=== PATIENT | female | born 1945 | race Caucasian/White ===

== ENCOUNTER → 2017-03-17 | Day surgery (SDC) | payer MEDICARE, OTHER ==
[~2017-03-17] VITALS: Ht 160 cm; Wt 68.0 kg
[~2017-03-17] MED LIST: ACET-2605 PO; BRIM30GE2 TP; Bacitracin Ointment Packet TOPICAL ONE; Bupivacaine-MPF 0.25% 30 mL Inj INFILTRATE ONE; CeFAZolin 2 Gm/50 mL D5W IV Premix IV SCH; Dexamethasone 4 mg/mL Inj IVPUSH PRN; Dexamethasone 4 mg/mL Inj ONE; EPHEDrine Sulfate 50 mg/mL Inj IVPUSH PRN; Lactated Ringer's 1,000 ML IV SCH; Lactated Ringer's 500 ML IV PRN; Lidocaine 1%-Epi 1:100,000 20 mL Inj INJ ONE; MetoCLOpramide 5 mg/mL 2 mL Inj IVPUSH PRN; NITR0.4T6 SL; OMEP40CA36 PO; Ondansetron 2 mg/mL 2 mL Inj IVPUSH PRN; Ondansetron 2 mg/mL 2 mL Inj ONE; Phenylephrine 10,000 mCg/mL Inj IVPUSH PRN; Propofol 10 mg/mL 20 mL Inj ONE; SUCR1ORA2 PO; TRAZ-115 PO; fentaNYL-PF 50 mCg/mL 2 mL Inj IVPUSH PRN; fentaNYL-PF 50 mCg/mL 20 mL Inj ONE
[2017-03-17] MEDS: Lactated Ringer's 1,000 ML IV SCH ×2 (05:54→07:50)
[2017-03-17 06:17] VITALS: BP 112/54; PULSE 53; RESP 17; O2SAT 99
--- NOTE | 2017-03-17 07:10 | PCM.HPANE ---
Patient Data Surgeon Admitting Provider: Attending Provider:Fam Rodney MD Primary Care Physician:Rehana Costello PA-C Other Provider:Brooke Graham Anesthesia Reason for Visit Left Cheek Mass (Cyst) Ht/WT & BMI Height (Feet): 5 Height (Inches): 3 Weight (Kilograms): 68.0 Body Mass Index 26.00 Allergies Coded Allergies: Yeast (Verified Allergy, Unknown, 03/14/17) cannot tolerate any products with yeast base hydrocodone (Verified Allergy, Unknown, altered heart rate, 03/14/17) hydrocortisone (Verified Allergy, Unknown, 03/17/17) Past Anesthesia History Anesthesia History: Positive for:: Anesthesia Reactions (difficult to awaken long ago), Denies:: Abnormal Airway, Difficult Intubation, Fam Anesthesia Reaction Diabetes History Hx Diabetes?: No MRSA MRSA: No (bad post op infection at one time, never confirmed as MRSA) Medications Hypertension Medication: No Home Meds Incl Beta Carolyn: No Reported Medications Nitroglycerin SL 0.4 Mg Tab.subl0.4 Mg SL PRN chest pain 03/14/17 Omeprazole 40 Mg Capsule.dr40 Mg PO BID Ref 0 03/14/17 Acetaminophen/Diphenhydramine (Tylenol Pm Ex-Strength Caplet)500 Mg-25 Mg Tablet2 Each PO HS 03/14/17 Trazodone 50 Mg [id number] Mg PO HS Ref 0 03/14/17 Brimonidine Tartrate (Mirvaso)0.33 % Gel.w.pump30 Gm TP DAILY 03/14/17 Sucralfate Susp (Carafate Susp)1 Gm/10 Ml Oral.susp1 Gm PO PRN For Epigastric Distress Ref 0 03/14/17 History History of ENT Problems?: No HEENT History: Positive for:: Cataracts (bilateral surgery) Denies:: Abnormal Airway Difficult Intubation Dysphagia Glaucoma Hearing Problem Sinus Problem TMJ Denture Type: None Teeth Condition: Within Normal Limits Hx of Heart Problems?: No Cardiovascular History: Denies:: AICD Abdominal Aortic Aneurism Atrial Fibrillation Chest Pain Edema Heart Murmur Hypertension Irregular Heartbeat Pacemaker Peripheral Vascular Rheumatic Fever Hx of Respiratory Problem?: No Respiratory History: Denies:: Asthma COPD Emphysema Oxygen Administration Pneumonia (remote hx of ) Tuberculosis Use of C-PAP Machine Hx Neurologic Problems?: No Neurological History: Denies:: CVA Headaches Multiple Sclerosis Parkinson's Disease Seizures Hx of GI Problems?: Yes Hx of Problems?: Yes Genitourinary History: Denies:: Kidney Stones Urinary Tract Infection Other Pertinent History: 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 (hx of right mastectomy- breast cancer) Denies:: Currently Skin History: Positive for:: History Skin Disorders? (epidermal cyst left cheek current admission problem) Hx Musculoskeletal Problems?: Yes Musculoskeletal History: Positive for:: Joint Replacement (total thumb replacements- bilateral) Osteoarthritis Denies:: Back Injury Degenerative Joint Fibromyalgia Systemic Lupus Hx of Psycho/Social Problems?: No Hx Surgeries?: Yes (hysterectomy, right mastectomy, total thumbs ) Hx Any Other Health Problems?: Yes Other History: Positive for:: Cancer (right breast ) Denies:: Thyroid Disease History Blood Transfusions: Positive for:: Accept Blood Products? Denies:: Blood Transfusions Hx Diabetes: No Hx Alcohol Use: NoHx Substance Use: NoHave You Smoked inLast 12 mo: No Stop/Bang Treated for Sleep Apnea?: No Do You Have a CPAP Machine?: No S-Snoring: Do You Snore Loudly: No T-Tired: feel tired, fatigued: No O-Obsered: Observed not breath: No P-Blood Pressure: treated: No B- Body Mass Index > 35 kg/m2: No A- Age over 50: Yes N- Neck Large Circumference: No G- Gender Male: No JEREMI Total Score: 1 JEREMI Risk Assessment: Low Risk, <3 Yes Risk Assessment Category Category 1A: Patient has history of documented sleep apnea, and HAS NOT received any narcotic, sedative or anesthesia administration during this stay. Category 1B: Patient has history of documented sleep apnea, and HAS received any narcotic , sedative or anesthesia administration during this stay Category 2: Patient has SUSPECTED Obstructive Sleep Apnea, and HAS received any narcotic , sedative or anesthesia administration during this stay. Category 3: Patient has SUSPECTED Obstructive Sleep Apnea and HAS NOT received narcotic, sedative or anesthesia administration during this stay. Category 4: Outpatient in Procedural Areas with known sleep apnea or who screen positive for High Risk via the STOP/BANG questionnaire. Exam Exam Vital Signs Vital Signs Date Time Temp Pulse Resp B/P Pulse Ox O2 Delivery O2 Flow Rate FiO2 03/17/17 06:17 35.8 53 17 112/54 99 Room Air General Appearance: Alert, Oriented X3, Cooperative HEENT/AIRWAY: MP 1 Lungs: Clear to Auscultation, Normal Air Movement Heart: Exam Unremarkable, Regular Rate/Rhythm, No Murmurs/Rubs/Gallops Meds/Labs/Diagnostics Admission Meds Current Medications Lactated Ringer's (Lr) 1,000 ml @ 120 mls/hr [id number] IV Last administered on t 05:54; Start 03/17/17 at 05:00; Stop 03/17/17 at 13:19 Plan Impression Patient chart reviewed, patient interviewed and anesthestic plan with risks, benefits, and alternatives discussed, and informed consent obtained. NPO per Anesth. Guidelines: Yes ASA Physical Status: ASA2 Mod Systemic Disease Anesthetic Plan: GA Bene/Risks/Altern/Consents: Yes HP Complete Prior to Induction: Yes Trino Shearer MD Mar 17, 2017 07:10
--- NOTE | 2017-03-17 08:09 | PCM.ANEP1 ---
Post Anesthesia PACU Phase 1 Assessment Vital Signs Vital Signs Date Time Temp Pulse Resp B/P Pulse Ox O2 Delivery O2 Flow Rate FiO2 03/17/17 06:17 35.8 53 17 112/54 99 Room Air Anesthetic Administered: GA Level of Alertness: Awake, talking LOBATO's with Equal Strength: Yes Pain: No Nausea or Vomiting: No CV Function & Hydration Stable: Yes Airway Device: Oxygen Delivery: Room Air Lungs: Clear to Auscultation, Normal Air Movement PACU Phase 2 Assessment Complications: No Follow up Care: No Patient Instructions Provided: N/A Trino Shearer MD Mar 17, 2017 08:09
[2017-03-17 08:15] VITALS: BP 107/49; PULSE 52; RESP 17; O2SAT 98
[2017-03-17 08:58] VITALS: BP 113/41; PULSE 51; RESP 16; O2SAT 99
--- NOTE | 2017-03-18 13:15 | OP ---
[address] [address] OPERATIVE REPORT PATIENT: SYLVAIN GARCIA : 1945 MR#: [id number] ADMIT: 03/17/2017 JOB ID: [id number] DATE OF SURGERY: 03/17/2017 PREOPERATIVE DIAGNOSIS(ES): Left cheek mass. POSTOPERATIVE DIAGNOSIS(ES): Left cheek mass, likely an epidermal inclusion cyst, 1.7 cm. PROCEDURE: 1. Excision of left cheek epidermal inclusion cyst 1.7 cm. 2. Layered closure of left cheek defect. Total length of layered closure. 1.8 cm. SURGEON: Fam Rodney MD OCCUPATIONAL THERAPIST ASSISTANTS: None. ANESTHESIA: MAC with local. COMPLICATIONS: None apparent. SPECIMEN: Left cheek mass to Pathology. INDICATIONS FOR PROCEDURE: This is a 71-year-old female patient with a recurrently infected left cheek lesion that is likely an epidermal inclusion cyst. At this point excision is indicated to prevent further complications and infections. PROCEDURE AND FINDINGS: The patient was identified in the preoperative area. The surgical site was marked. I marked the border of the cyst. The patient was then taken back to the operating room and placed supine on the operating table. Appropriate time-outs were taken. MAC was induced smoothly. The patient was then prepped and draped in the usual sterile manner. Local anesthesia was then infiltrated around the surgical site with lidocaine with epinephrine and Marcaine. A small ellipse was then made with a #15 blade over the center of the mass. The length of the ellipse was approximately the diameter of the mass. The ellipse was oriented along the relaxed skin tension line. The incision was deepened down just through the skin when I encountered the epidermal inclusion cyst. Using a pair of tenotomy scissors the cyst was dissected free from its surrounding soft tissue and passed off to Pathology with this attached ellipse of skin. There was minimal bleeding. The incision was reapproximated first with a layer of 4-0 Monocryl deep dermal suture, followed by 5-0 Prolene simple interrupted sutures. The patient tolerated the procedure well. Needle count, sponge count, and instrument counts were correct at the end of the procedure. The patient was transported to recovery in stable condition. Again, the incision closed was approximately 1.8 cm. The diameter of the cyst was approximately 1.7 cm.
== END | disposition home or self-care (01) ==
LOC: SAS 05:47
PROVIDERS: ATTEND Plastic Surgery
DX: L72.0 Epidermal cyst (principal)
CPT/HCPCS: 11442; 12051; 88304; J0690; J1100; J2405; J2704; J3010; J7120